=== PATIENT | male | born 1985 ===

== ENCOUNTER 2019-06-12 15:40 | Emergency (ER) | payer SELFPAY ==
[~2019-06-12] VITALS: Ht 177.8 cm; Wt 113.4 kg
[2019-06-12 16:16] VITALS: BP 119/71
--- NOTE | 2019-06-12 16:34 | ED General ---
General Chief Complaint: General Problems/Pain Stated Complaint: SHAKING, HAS BEEN HAVING TREMORS Nursing Triage Note: PT AMBULATE TO TRIAGE WITH C/O RUNNING OUT OF HIS CLONAZAPAM ON THURSDAY. PT STATES HIS APPT IS NOT UNTIL 07/11/19. PT STATES THAT THEY DID NOT GIVE HIM ENOUGH MEDS TO GET HIM THROUGH UNTIL HIS NEXT APPT. PT STATES HE HAS BEEN HAVING TREMORS SINCE HE RAN OUT OF MEDS. PT STATES HE DID NOT CALL PROVIDER ABOUT GETTING MORE MEDS BECAUSE HE "DID NOT THINK ABOUT IT". Nursing Sepsis Screen: No Definite Risk History of Present Illness Date Seen by Provider: Jun 12, 2019 Time Seen by Provider: 16:33 Allergies and Home Medications Allergies Coded Allergies: No Known Drug Allergies (Unverified , 06/12/19) Patient Home Medication List Home Medication List Reviewed: Yes Review of Systems Review of Systems Constitutional: no symptoms reported EENTM: no symptoms reported Respiratory: no symptoms reported Cardiovascular: no symptoms reported Gastrointestinal: no symptoms reported Musculoskeletal: no symptoms reported Skin: no symptoms reported Psychiatric/Neurological: Tremors Past Tdvlkug-Cvlqiv-Vagxps Hx Past Med/Social Hx: Reviewed Nursing Past Med/Soc Hx Patient Social History Alcohol Use: Regular Use Alcohol Beverage of Choice: Beer Recreational Drug Use: No Smoking Status: Never a Smoker 2nd Hand Smoke Exposure: No Recent Foreign Travel: No Contact w/Someone Who Travel: No Recent Infectious Disease Expo: No Recent Hopitalizations: No Physical Abuse: No Sexual Abuse: No Mistreated: No Fear: No Seasonal Allergies Seasonal Allergies: No Past Medical History Surgeries: No Respiratory: No Cardiac: No Neurological: No Genitourinary: No Gastrointestinal: No Musculoskeletal: No Endocrine: No HEENT: No Cancer: No Anxiety, Depression Integumentary: No Blood Disorders: No Physical Exam Vital Signs Vital Signs - First Documented 06/12/19 16:16 Temp 36.8 Pulse 111 Resp 19 B/P (MAP) 119/71 (87) O2 Delivery Room Air Capillary Refill : Less Than 3 Seconds Height, Weight, BMI Height: '" Weight: lbs. oz. kg; 35.00 BMI Method: General Appearance: No Apparent Distress, WD/WN Eyes: Bilateral Eye Normal Inspection, Bilateral Eye PERRL Respiratory: Chest Non Tender, Lungs Clear, Normal Breath Sounds Cardiovascular: Regular Rate, Rhythm, No Edema Gastrointestinal: Non Tender, Soft Back: Normal Inspection, No CVA Tenderness Neurologic/Psychiatric: Other (patient with tremors/shaking) Skin: Normal Color, Warm/Dry Progress/Results/Core Measures Suspected Sepsis Recent Fever Within 48 Hours: No Infection Criteria Present: None New/Unexplained Altered Menta: No Sepsis Screen: No Definite Risk SIRS Temperature: Pulse: 111 Respiratory Rate: 19 Blood Pressure 119 /71 Mean: 87 Results/Orders My Orders Orders - ERIN SANTOS DO Clonazepam Tablet (Klonopin Tablet) (06/12/19 16:45) Vital Signs/I&O 06/12/19 16:16 Temp 36.8 Pulse 111 Resp 19 B/P (MAP) 119/71 (87) O2 Delivery Room Air Capillary Refill : Less Than 3 Seconds Blood Pressure Mean: 87 Progress Note : Time: 16:40 Progress Note Patient has no previous visits does not exhibit drug-seeking behavior. Due to the risk of benzo withdrawal I will give him 5 - 0.5 mg clonazepam prescription. Patient should call his primary care provider in the morning and get an appointment for refill and further management of his anxiety. Departure Impression Primary Impression: Anxiety disorder Qualified Codes: F41.1 - Generalized anxiety disorder Additional Impression: Benzodiazepine withdrawal Qualified Codes: F13.230 - Sedative, hypnotic or anxiolytic dependence with withdrawal, uncomplicated Disposition: 01 HOME, SELF-CARE Condition: Stable Departure-Patient Inst. Referrals: NO,LOCAL PHYSICIAN (PCP/Family) Primary Care Physician Patient Instructions: Anxiety, Adult (DC), Prescription Drug Misuse ERIN SANTOS DO Jun 12, 2019 16:34
[2019-06-12] MEDS ORDERED: CLON0.5T4 PO (16:38)
[2019-06-12] MEDS ORDERED: clonazePAM 0.5 MG (KlonoPIN) TAB PO ONE (16:45)
== END 2019-06-12 17:01 | disposition home or self-care (01) ==
LOC: ER 15:42
DX: F41.9 Anxiety disorder, unspecified (principal); F13.239 Sedative, hypnotic or anxiolytic dependence with withdrawal, unspecified; Z86.59 Personal history of other mental and behavioral disorders
CPT/HCPCS: 99283